=== PATIENT | male | born 1975 | race Caucasian/White ===

== ENCOUNTER 2017-04-18 15:54 | Emergency (ER) | payer OTHER, BC ==
[~2017-04-18] VITALS: Ht 182.9 cm; Wt 94.9 kg
[2017-04-18] MEDS ORDERED: KEFLEX500 MG PO (17:38)
[2017-04-18] MEDS ORDERED: NORCO 5/3251 TABLET PO (17:38)
[2017-04-18 18:04] VITALS: BP 144/54
== END 2017-04-18 18:05 | disposition home or self-care (01) ==
LOC: EME 15:54
PROC: 3E0234Z Introduction of Serum, Toxoid and Vaccine into Muscle, Percutaneous Approach (ICD-10-PCS; principal; 2017-04-18)
PROC: 0HQLXZZ Repair Left Lower Leg Skin, External Approach (ICD-10-PCS; principal; 2017-04-18)
DX: S81.812A Laceration without foreign body, left lower leg, initial encounter (principal); W01.0XXA Fall on same level from slipping, tripping and stumbling without subsequent striking against object, initial encounter; Y92.512 Supermarket, store or market as the place of occurrence of the external cause; Y99.0 Civilian activity done for income or pay; Z23 Encounter for immunization; Z87.891 Personal history of nicotine dependence
CPT/HCPCS: 73590; 99281; 99284; J0690; J2270; J2405; J7030; J7050; S0020

== ENCOUNTER 2017-05-01 16:59 | Emergency (ER) | payer OTHER, BC ==
[~2017-05-01] VITALS: Ht 182.9 cm; Wt 90.8 kg
[~2017-05-01 16:59] MED LIST: KEFLEX500 MG PO; NORCO 5/3251 TABLET PO
[2017-05-01 17:39] VITALS: BP 156/87
== END 2017-05-01 17:59 | disposition home or self-care (01) ==
LOC: EME 16:59
DX: S81.812D Laceration without foreign body, left lower leg, subsequent encounter (principal); W45.8XXD Other foreign body or object entering through skin, subsequent encounter; W19.XXXD Unspecified fall, subsequent encounter; Z48.02 Encounter for removal of sutures
CPT/HCPCS: 99281; 99283